=== PATIENT | male | born 1940 | race Caucasian/White ===

== ENCOUNTER → 2016-12-24 | Outpatient (CLI) | payer OTHER, MEDICARE ==
--- NOTE | 2016-12-24 10:44 | FL ---
EXAMINATION TYPE: FL UGI air w esophagus DATE OF EXAM: 12/24/2016 COMPARISON: 12/07/15 HISTORY: Acid reflux with to prior hiatal hernia surgeries. TECHNIQUE: A double contrast UGI study is performed. FINDINGS: Fisher Diving image of the abdomen shows no gross abnormality. The esophagus shows normal motility and emptying into the stomach. No evidence of hiatal hernia or s tricture noted. However, there is a diverticulum seen posteriorly, most compatible with a pulsion div erticulum. The stomach shows normal distensibility, peristalsis, but prominent mucosal folds. The previously méndez spected organoaxial type volvulus or incomplete rotation of the stomach has resolved in the interim. No evidence of any mass or ulcer disease. No evidence of stricture, obstruction, or leak. Gastroesophageal reflux to the level of the mid thoracic esophagus was appreciated in the gravity ind ependent portion the examination utilizing the Valsalva maneuver. Tertiary contractions were present during the gravity dependent portion of the examination. The duodenal bulb, sweep, and proximal small bowel loops are unremarkable. IMPRESSION: 1. Moderate gastroesophageal reflux. 2. Distal esophageal diverticulum, likely pulsion. 3. No evidence of stricture, obstruction, or leak. 4. Resolution of the previously suspected organoaxial type gastric volvulus. 5. Presbyesophagus.
== END | disposition home or self-care (01) ==
LOC: RADFLMAIN 07:18
PROVIDERS: ATTEND Surgery
DX: K21.9 Gastro-esophageal reflux disease without esophagitis (principal); K22.5 Diverticulum of esophagus, acquired; K22.8 Other specified diseases of esophagus
CPT/HCPCS: 74246

== ENCOUNTER 2017-01-06 07:54 | Day surgery (SDC) | payer OTHER, MEDICARE ==
[2017-01-01 13:29] VITALS: BMI 28.0
[~2017-01-06 07:54] MED LIST: LACTATED RINGERS 1,000 ML IV SCH; LIDOCAINE 1% 20 ML VIAL (10MG/ML) FOR IV START INTRADERMA PRN
[2017-01-06 08:08] VITALS: TEMP 98.1
[2017-01-06] MEDS ORDERED: LACTATED RINGERS 1,000 ML IV ONE (08:09)
[2017-01-06 08:22] LABS: Glucose,Whole Blood 124 mg/dL (75-99)
[2017-01-06] MEDS ORDERED: PROPOFOL 10 MG/ML 20 ML VIAL IV ONE (09:14)
[2017-01-06] MEDS ORDERED: GLYCOPYRROLATE 0.2 MG/ML 2 ML VIAL ONE (09:14)
[2017-01-06] MEDS ORDERED: LIDOCAINE 1% INJ 10MG/ML (20 ML MDV) ONE (09:14)
--- NOTE | 2017-01-06 09:25 | P.GSHP ---
History of Present Illness H&P Date: 01/06/17 Chief Complaint: GERD This is a 76-year-old male with issues of mild dysphagia.. Patient has had a previous hiatal hernia repair. His recent esophagram shows no evidence of a hiatal hernia. There is evidence of a distal office diverticulum. Patient presents today for EGD. Past Medical History Past Medical History: Coronary Artery Disease (CAD), Chest Pain / Angina, COPD, Diabetes Mellitus, GERD/Reflux, Hyperlipidemia, Hypertension, Osteoarthritis (OA ), Pneumonia, Prostate Disorder Additional Past Medical History / Comment(s): STATES IRREGULAR HEART BEAT, ENLARGED PROSTATE, URGENCY W URINATION. hx hiatal hernia, borderline diabetic History of Any Multi-Drug Resistant Organisms: None Reported Past Surgical History: Heart Catheterization, Heart Catheterization With Stent, Tonsillectomy Additional Past Surgical History / Comment(s): HEART CATH X4- ONE STENT., COLONOSCOPY, BILAT CATARACT SX, EGD Past Anesthesia/Blood Transfusion Reactions: No Reported Reaction Date of Last Stent Placement:: 2008 Smoking Status: Former smoker - Past Family History Mother Family Medical History: No Reported History Father Family Medical History: CVA/TIA Brother(s) Family Medical History: Cancer Additional Family Medical History / Comment(s): . Medications and Allergies Home Medications Medication Instructions Recorded Confirmed Type Albuterol Nebulized [Ventolin 2.5 mg INHALATION Q6H PRN 02/12/15 01/06/17 History Nebulized] Aspirin EC [Ecotrin Low Dose] 81 mg PO DAILY 02/12/15 01/01/17 History Carvedilol [Coreg] 6.25 mg PO QAM 02/12/15 01/01/17 History Finasteride [Proscar] 5 mg PO DAILY 02/12/15 01/01/17 History Fluticasone/Salmeterol [Advair 1 inhalation PO QAM 02/12/15 01/01/17 History 500-50 Diskus] Furosemide [Lasix] 40 mg PO DAILY 02/12/15 01/01/17 History Loratadine [Claritin] 10 mg PO DAILY 02/12/15 01/01/17 History Rosuvastatin Calcium [Crestor] 20 mg PO DAILY 02/12/15 01/01/17 History Tiotropium [place] [Spiriva] 1 puff IH QAM 02/12/15 01/01/17 History Glucosam/Chond/Hyalu/Cf Borate 1 each PO DAILY 01/01/17 01/01/17 History [Move Free Joint Health Tablet] Losartan [Cozaar] 12.5 mg PO DAILY 01/01/17 01/01/17 History Multivitamins, Thera [Multivitamin 1 tab PO DAILY 01/01/17 01/01/17 History (formulary)] Ranitidine HCl 300 mg PO QAM 01/01/17 01/01/17 History metFORMIN HCL [Glucophage] 500 mg PO DAILY 01/01/17 01/01/17 History Allergies Allergy/AdvReac Type Severity Reaction Status Date / Time No Known Allergies Allergy Verified 01/01/17 13:12 Surgical - Exam Vital Signs Temp Pulse Resp BP Pulse Ox 98.1 F 70 18 114/74 100 01/06/17 08:07 01/06/17 08:07 01/06/17 08:07 01/06/17 08:07 01/06/17 08:07 - General well developed, no distress - Eyes PERRL - ENT normal pinna - Neck no masses - Respiratory normal expansion - Cardiovascular Rhythm: regular - Abdomen Abdomen: soft, non tender Results - Labs Abnormal Lab Results - Last 24 Hours (Table) 01/06/17 Range/Units 08:20 POC Glucose (mg/dL) 124 H (75-99) mg/dL Assessment and Plan Plan: GERD, dysphagia. We'll.
--- NOTE | 2017-01-06 09:33 | P.OP ---
Date of Procedure: 01/06/17 Preoperative Diagnosis: GERD Postoperative Diagnosis: Mild antral gastritis Retained gastric food Small recurrent hiatal hernia Procedure(s) Performed: EGD Implants: Anesthesia: MAC Surgeon: Guru Aguero Pathology: other (Antrum) Condition: stable Disposition: PACU Indications for Procedure: Operative Findings: Description of Procedure: The patient's placed on the endoscopy table in the lateral position. He received IV sedation. The gastroscope placed oropharynx and passed into the esophagus into the stomach. Scope was then placed through the pylorus. The first and second portion of the duodenum appeared normal. Scope was then brought back the antrum this. Mildly inflamed. A biopsies was performed. Scope was then retroflexed and the remainder of the stomach appeared normal. The patient had some retained gastric food. There was a small recurrent hiatal hernia. The GE junction was at 40 cm. The distal esophagus appeared normal. The small diverticulum was seen in the distal esophagus. The proximal esophagus appeared normal. Scope Patient.
[2017-01-06 09:45] LABS: Glucose,Whole Blood 111 mg/dL (75-99)
[2017-01-06 10:00] VITALS: BP 100/72; PULSE 70; RESP 18
== END 2017-01-06 10:27 | disposition home or self-care (01) ==
LOC: ORWHC2ENDO 07:54
PROVIDERS: ATTEND Surgery
DX: K21.9 Gastro-esophageal reflux disease without esophagitis (principal); K29.50 Unspecified chronic gastritis without bleeding; K22.5 Diverticulum of esophagus, acquired; K44.9 Diaphragmatic hernia without obstruction or gangrene; J44.9 Chronic obstructive pulmonary disease, unspecified; I25.119 Atherosclerotic heart disease of native coronary artery with unspecified angina pectoris; E11.9 Type 2 diabetes mellitus without complications; E78.5 Hyperlipidemia, unspecified; I10 Essential (primary) hypertension; M19.90 Unspecified osteoarthritis, unspecified site; N40.1 Benign prostatic hyperplasia with lower urinary tract symptoms; R39.15 Urgency of urination; Z79.82 Long term (current) use of aspirin; Z79.51 Long term (current) use of inhaled steroids; Z79.84 Long term (current) use of oral hypoglycemic drugs; Z79.899 Other long term (current) drug therapy; Z87.891 Personal history of nicotine dependence; Z95.5 Presence of coronary angioplasty implant and graft; Z82.3 Family history of stroke; Z80.9 Family history of malignant neoplasm, unspecified
CPT/HCPCS: 43239; 88305; 88342; J2001; J2704

== ENCOUNTER → 2018-04-01 | Outpatient (CLI) | payer MEDICARE, OTHER ==
--- NOTE | 2018-04-02 07:52 | CT ---
EXAMINATION TYPE: CT soft tissue neck w con DATE OF EXAM: 04/01/2018 HISTORY: Localized swelling on anterior neck. BB's placed on areas of interest. COMPARISON: NONE CT DLP: 638 mGycm. Automated Exposure Control for Dose Reduction was Utilized. TECHNIQUE: CT scan of the neck is performed with IV Contrast, patient injected with 100ml mL of Isov ue M300, axial images are obtained, coronal and sagittal reformatted images are reviewed. FINDINGS: BBs are noted axial image 36 at level of hyoid bone. There is mild diffuse fat stranding at this level. On the left side there is round 9 x 8 mm hyperdense lesion axial image 36 could reflect borderline enlarged lymph node. No well-formed fluid collection is seen. There is smaller more ill-de fined round mass probable lymph node in the midline axial image 34. The submandibular glands are seen just superior and lateral to this level, right slightly larger than left but no significant surround ing inflammatory change. There are slightly prominent but symmetric appearing subcentimeter bilateral submandibular lymph nodes seen superior to this. Lack of dentition is noted. Mandible is intact with out ossific destruction. Airway: No gross abnormality seen. Parotid/submandibular glands: No gross abnormality seen. Carotid/Vascular Structures: Ascending aorta measures up to 3.6 cm in diameter on lowest-most axial i mages. Left pulmonary artery measures up to 2.9 cm in diameter axial image 86. Underlying pulmonary a rtery hypertension needs to BE considered. There is mild to moderate mixed plaque in the aortic arch. There is moderate to severe right and mild to moderate left mixed plaque at bilateral carotid bulbs extending into proximal internal carotid arteries. No significant stenosis is clearly seen bilaterall y. Stenosis approaching near 50% is suspected on the right Osseous Structures: There is moderate to severe multilevel disc space narrowing with mild multilevel spurring, there is multilevel vacuum disc phenomenon. Endplate sclerosis is seen. Findings are fairly diffuse from C3 to C4 through C6-C7 levels. Posterior spur disc complexes are effacing anterior thec al sac C3-C4 and C6-C7 levels on sagittal images. There is multilevel uncovertebral facet degenerativ e changes seen on axial images. Other: No definitive greater than 1 cm neck adenopathy is identified bilaterally IMPRESSION: Nonspecific inflammatory change in the lower mandible with reactive adenopathy centered a nteriorly at level of hyoid bone. Correlate for soft tissue infection or cellulitis. No well-formed f luid collection or abscess is noted.
== END | disposition home or self-care (01) ==
LOC: RADCTMAIN 16:11
PROVIDERS: ATTEND Family Medicine
DX: R59.0 Localized enlarged lymph nodes (principal); L08.89 Other specified local infections of the skin and subcutaneous tissue
CPT/HCPCS: 82565; 84520; 70491; 36415; Q9967

== ENCOUNTER → 2018-05-19 | Outpatient (CLI) | payer MEDICARE, OTHER ==
[2018-05-19 16:20] LABS: Blood Urea Nitrogen 19 mg/dL (9-20)
--- NOTE | 2018-05-19 22:23 | CT ---
EXAMINATION TYPE: CT chest w con DATE OF EXAM: 05/19/2018 COMPARISON: None HISTORY: 77-year-old male emphysema, weight loss TECHNIQUE: Contiguous axial scanning of the chest after the administration of 100 mL of Isovue 300. Coronal/sagittal reconstructions performed. CT DLP: 360.30mGycm. Automatic exposure control utilized for a dose reduction. FINDINGS: Heart normal size without pericardial effusion. Coronary vessel calcifications are present. Aorta normal caliber with mild atherosclerotic arch calcifications and conventional arch vessel branc irma anatomy. Ectatic upper descending thoracic aorta at 3.0 cm. Large caliber to the main right and left pulmonary arteries measuring 2.8 and 3.3 cm, respectively, s uggesting underlying pulmonary arterial hypertension. No thoracic lymphadenopathy by CT size criteria. Mild to moderate centrilobular emphysema. Strandy atelectasis or scarring at the left base. 6 mm nonspecific pulmonary nodule right lower lung along the major fissure. Postsurgical changes at the GE junction with a small to moderate-sized hiatal hernia. Fat-containing right-sided Bochdalek hernia demonstrated. Subcentimeter (7 mm) hypodensity peripheral and inferior right liver lobe too small for accurate CT c haracterization, probable cyst. There is a couple rounded focal soft tissue areas of nodularity in the pancreas measuring 1.3 cm at t he junction of the pancreatic tail and body and measuring 1.2 cm at the tip of the pancreatic tail. T hese could represent some prominent islands of pancreatic tissue on a background of mild diffuse atro phy. Possible partially visualized infrarenal abdominal aortic aneurysm. Bones: Degenerative disc disease mid to lower thoracic spine. IMPRESSION: 1. Findings which warrant follow-up: 6 mm right mid to lower lung pulmonary nodule, 7 mm right liver lobe hypodense lesion (possible cyst), and a couple nodular areas in the pancreas measuring up to 1.3 cm (possible prominent islands of pancreatic tissue on a background of pancreatic atrophy). Three-mo nth follow-up contrast-enhanced CT chest and abdomen recommended to reassess. 2. COPD and pulmonary arterial hypertension. CAD. 3. Postsurgical changes at the GE junction with a small to moderate-sized hiatal hernia (query recurr ent hernia). 4. Possible partially visualized infrarenal abdominal aortic aneurysm.
== END | disposition home or self-care (01) ==
LOC: RADCTMAIN 15:30
PROVIDERS: ATTEND Family Medicine
DX: J44.9 Chronic obstructive pulmonary disease, unspecified (principal); I25.10 Atherosclerotic heart disease of native coronary artery without angina pectoris; I27.21 Secondary pulmonary arterial hypertension; K44.9 Diaphragmatic hernia without obstruction or gangrene; R91.1 Solitary pulmonary nodule; R63.4 Abnormal weight loss
CPT/HCPCS: 82565; 84520; 71260; 36415; Q9967

== ENCOUNTER → 2018-09-01 | Outpatient (CLI) | payer MEDICARE, OTHER ==
[2018-09-01 09:44] LABS: Blood Urea Nitrogen 17 mg/dL (9-20)
--- NOTE | 2018-09-01 11:48 | CT ---
EXAMINATION TYPE: CT chest abdomen w con DATE OF EXAM: 09/01/2018 COMPARISON: CT chest May 19, 2018. HISTORY: Pancreatic mass, lung nodule CT DLP: 897.2 mGycm. Automated Exposure Control for Dose Reduction was Utilized. CONTRAST: CT scan of the thorax and abdomen are performed with oral and with IV Contrast, patient injected with 100 mL of Isovue 370. FINDINGS: LUNGS: There is background mild to borderline moderate underlying emphysematous change most prominent in the upper lobes. There is persistent Bochdalek type hernia in the right lung base posteriorly con taining intra-abdominal fat. There is adjacent right lung linear scarring and/or atelectasis. There i s stable 6 x 5 mm partially calcified nodule along the right lung fissure axial image 83 presumed juan antonio ign. No new nodules or masses are present. No pleural effusion or pneumothorax is identified. MEDIASTINUM: There are no greater than 1 cm hilar or mediastinal lymph nodes. No cardiomegaly or p ericardial effusion is seen. Coronary artery calcification is again seen which is noted marker for un derlying coronary artery disease OTHER: Small degree of bilateral gynecomastia is redemonstrated. LIVER/GB: There is stable subcentimeter low dense lesion right hepatic lobe axial image 163 favor juan antonio ign. PANCREAS: There is moderate generalized atrophy of the pancreas with stable 1.1 cm nodular prominence mid to distal body axial image 146 which is presumed more focal nonatrophic pancreatic tissue as the re is no distal ductal dilatation, similar finding is seen in the pancreatic tail though slightly les s prominent axial image 151 unchanged from prior. SPLEEN: No significant abnormality is seen. ADRENALS: No significant abnormality is seen. KIDNEYS: No excretion is seen bilaterally present product of time of imaging. No hydronephrosis is no comfort. BOWEL: Surgical changes and gastroesophageal junction are redemonstrated. There is no suspicious smal l or large bowel dilatation. Diverticula in the left colon are noted. LYMPH NODES: No greater than 1cm abdominal lymph nodes are appreciated. OSSEOUS STRUCTURES: Facet arthropathy lower lumbar spine is present. OTHER: There is moderate apparatus chronic change in the aorta. There is ectasia measuring up to 2.7 cm transversely axial image 194 with moderate left-sided noncalcified intramural hematoma noted. No g reater than 3 cm aneurysmal changes seen. IMPRESSION: 1. Stable presumed benign right mid lung partially calcified nodule. No new nodules or masses are ev ident. 2. Stable areas of nodular prominence in the pancreas favored nonatrophic tissue. 3. Ectasia/aneurysm of distal abdominal aorta up to 2.[address] follow-up in 6 months time to ensure suspected benign findings.
== END | disposition home or self-care (01) ==
LOC: RADCTMAIN 08:42
PROVIDERS: ATTEND Family Medicine
DX: K86.89 Other specified diseases of pancreas (principal); R91.1 Solitary pulmonary nodule; I71.4 Abdominal aortic aneurysm, without rupture
CPT/HCPCS: 82565; 84520; 71260; 74160; 36415; Q9967

== ENCOUNTER → 2020-12-05 | Outpatient (CLI) | payer MEDICARE, OTHER ==
[~2020-12-05] MED LIST changes: -LACTATED RINGERS 1,000 ML IV SCH; -LIDOCAINE 1% 20 ML VIAL (10MG/ML) FOR IV START INTRADERMA PRN; +REGADENOSON 0.4 MG/5 ML SYRINGE IV PRN
--- NOTE | 2020-12-05 11:32 | NM ---
EXAMINATION TYPE: NM stress lexiscan cardiolite DATE OF EXAM: 12/05/2020 COMPARISON: NONE HISTORY: Chest pain TECHNIQUE: After the intravenous administration of 9.8 mCi Tc 99m Sestamibi - Cardiolite resting SPE CT images acquired 45 minutes post injection. The patient received 0.4mg Lexiscan, 25.5 mCi Tc 99m Sestamibi - Stress images obtained [address] injection FINDINGS: Review of stress and rest SPECT images demonstrates reduced uptake involving the inferior and inferoa pical portion of the myocardium with corresponding wall motion defect. No definite stress-induced rev ersible ischemia identified.. Gated analysis shows an estimated left ventricular ejection fraction o f 57 %. IMPRESSION: Area of suspected remote ischemia involving the inferior portion of the myocardial wall no definite s izable stress-induced reversible anemia although a tiny area of bursal ischemia cannot base correlate clinically.
--- NOTE | 2020-12-05 13:05 | EST ---
EXERCISE STRESS AGE: 80 SEX: M HT: 5'8" WT: 350 lbs. PROTOCOL: Lexiscan STAGE: NA DURATION OF EXERCISE: NA HEART RATE REST: 59 BLOOD PRESSURE REST: 131/73 MAXIMUM HEART RATE ACHIEVED: 73 MAXIMUM BLOOD PRESSURE: 131/73 85% MPHR: 120 100% MPHR: 141 METS: NA INDICATIONS: Heart disease. CLINICAL INFORMATION: Baseline rhythm is sinus mechanism rate of 59, occasional PVCs and rare couplets. Left axis deviation, poor R wave progression. Baseline blood pressure 131/73 mmHg. Patient received injection of Lexiscan. Electrocardiograph monitoring revealed frequent single PVCs. There was no evidence of diagnostic ischemic ST deviation. Cardiolite was injected per protocol. CONCLUSION: 1. Nondiagnostic electrocardiograph stress testing. 2. Frequent ventricular ectopic activity. 3. Nuclear images will be reported separately. MMODL / IJN: [id number] /
== END | disposition home or self-care (01) ==
LOC: RADNMMAIN 07:44
PROVIDERS: ATTEND Family Medicine
DX: I25.10 Atherosclerotic heart disease of native coronary artery without angina pectoris (principal); I10 Essential (primary) hypertension
CPT/HCPCS: 93017; 78452; A9500; J2785

== ENCOUNTER → 2022-08-11 | Outpatient (CLI) | payer MEDICARE, OTHER ==
--- NOTE | 2022-08-12 22:36 | MR ---
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 Bowels + urine go at the same time. COMPARISON: None TECHNIQUE: Multi planar, multi sequence imaging was performed through the brain including: T1, T2, In version recovery, susceptibility weighted imaging and gradient echo imaging and Diffusion weighted im aging. The patient was then given intravenous contrast and multi planar, T1 fat-saturation images wer e obtained. IV Contrast: 7.5 cc Gadavist FINDINGS: The ventricles are partially dilated to mild cerebral atrophy changes. Left lateral ventricle slightl y asymmetrically increased compared to right. The third ventricle and fourth ventricles are within no rmal limits. No transependymal flow identified. The portillo-white junctions, ventricular system, basal c isterns appear unremarkable. Diffusion-weighted imaging shows no evidence of restricted diffusion to suggest acute/subacute infarct. Intracranial arterial flow voids are maintained. Midline structures s how no abnormality. Scattered foci of high T2 signal intensity are seen within the periventricular wh ite matter. The susceptibility weighted images do not reveal any evidence for micro-hemorrhage. After administration of gadolinium, no abnormal enhancement is seen. The bone marrow signal is within normal limits. Paranasal sinuses and mastoid air cells: No significant paranasal sinus disease. Visualized orbits: Bilateral aphakia IMPRESSION: 1. No evidence for hydrocephalus. Dilation of ventricles in proportion to cerebral atrophy. No transe pendymal flow identified. 2. No evidence of intracranial mass, acute/subacute infarct, or abnormal enhancement. 3. Nonspecific white matter changes, likely related to small vessel ischemic disease
== END | disposition home or self-care (01) ==
LOC: RADMRIMAIN 17:29
PROVIDERS: ATTEND Family Medicine
DX: G31.9 Degenerative disease of nervous system, unspecified (principal); G91.2 (Idiopathic) normal pressure hydrocephalus; R90.82 White matter disease, unspecified
CPT/HCPCS: 70553; A9585

== ENCOUNTER 2022-10-23 06:43 | Day surgery (SDC) | payer MEDICARE, OTHER ==
[2022-10-23] MEDS ORDERED: LACTATED RINGERS 1,000 ML IV SCH (07:14)
[2022-10-23 07:50] LABS: Glucose,Whole Blood 114 mg/dL (70-110)
[2022-10-23 07:52] VITALS: TEMP 97
[2022-10-23] MEDS ORDERED: PROPOFOL 10 MG/ML 20 ML VIAL IV ONE (08:01)
--- NOTE | 2022-10-23 08:04 | P.GSHP ---
History of Present Illness H&P Date: 10/23/22 Chief Complaint: Weight loss, screening colonoscopy This is a 81-year-old male who's had some weight loss or last 6 months. Patient presents today for screening colonoscopy. Past Medical History Past Medical History: Coronary Artery Disease (CAD), Chest Pain / Angina, COPD, Diabetes Mellitus, GERD/Reflux, Hyperlipidemia, Hypertension, Osteoarthritis (OA), Pneumonia, Prostate Disorder, Thyroid Disorder Additional Past Medical History / Comment(s): STATES IRREGULAR HEART BEAT, ENLARGED PROSTATE, URGENCY W URINATION. hx hiatal hernia, borderline diabetic not taking metformin at this time per pt choice, he states his Dr Escobar is aware, no replacement med prescribed. wt loss over 1 1/2 yrs, 60lbs History of Any Multi-Drug Resistant Organisms: None Reported Past Surgical History: Heart Catheterization, Heart Catheterization With Stent, Tonsillectomy Additional Past Surgical History / Comment(s): HEART CATH X4- ONE STENT., CO LONOSCOPY, BILAT CATARACT SX, EGD Past Anesthesia/Blood Transfusion Reactions: No Reported Reaction Date of Last Stent Placement:: 2008 Past Psychological History: No Psychological Hx Reported Smoking Status: Former smoker Past Alcohol Use History: Occasional Additional Past Alcohol Use History / Comment(s): SMOKED SINCE HE WAS 15 YRS OLD AND QUIT 1991 AT 3PPD Past Drug Use History: Marijuana Additional Drug Use History / Comment(s): cbd oil . pt aware not to use 24 hrs before procedure - Past Family History Mother Family Medical History: No Reported History Father Family Medical History: CVA/TIA Brother(s) Family Medical History: Cancer Additional Family Medical History / Comment(s): leukemia. another brother filled with cancer Medications and Allergies Home Medications Medication Instructions Recorded Confirmed Type Albuterol Nebulized [Ventolin 2.5 mg INHALATION Q6H PRN 02/12/15 10/21/22 History Nebulized] Aspirin EC [Ecotrin Low Dose] 81 mg PO DAILY 02/12/15 10/21/22 History Finasteride [Proscar] 5 mg PO DAILY 02/12/15 10/21/22 History Furosemide [Lasix] 40 mg PO DAILY 02/12/15 10/21/22 History Loratadine [Claritin] 10 mg PO DAILY 02/12/15 10/21/22 History Tiotropium [place] [Spiriva] 1 puff IH QAM 02/12/15 10/21/22 History Losartan [Cozaar] 12.5 mg PO DAILY 01/01/17 10/21/22 History Multivitamins, Thera [Multivitamin 1 tab PO DAILY 01/01/17 10/21/22 History (formulary)] Ergocalciferol [Vitamin D2 (1250 1,250 mcg PO VELASQUEZ 10/21/22 10/21/22 History Mcg = 33404 Iu)] Famotidine 40 mg PO DAILY 10/21/22 10/21/22 History Fluticasone Propion/Salmeterol 1 inhalation PO DAILY PRN 10/21/22 10/21/22 History [Fluticasone-Salmeterol 250-50] Levothyroxine Sodium [Synthroid] 50 mcg PO DAILY 10/21/22 10/21/22 History Montelukast [Singulair] 10 mg PO DAILY 10/21/22 10/21/22 History Sacubitril/Valsartan [Entresto 24 1 each PO DAILY 10/21/22 10/21/22 History mg-26 mg Tablet] Tamsulosin [Flomax] 0.4 mg PO BID 10/21/22 10/21/22 History Unk Supp Help Soothe 1 tab PO DAILY 10/21/22 10/21/22 History Allergies Allergy/AdvReac Type Severity Reaction Status Date / Time No Known Allergies Allergy Verified 10/21/22 12:19 Surgical - Exam Vital Signs Temp Pulse Resp BP Pulse Ox 97 F L 66 20 104/58 97 10/23/22 07:50 10/23/22 07:50 10/23/22 07:50 10/23/22 07:50 10/23/22 07:50 - General well developed, well nourished, no distress - Eyes PERRL - ENT normal pinna - Neck no masses - Respiratory normal expansion - Cardiovascular Rhythm: regular - Abdomen Abdomen: soft, non tender Results - Labs Abnormal Lab Results - Last 24 Hours (Table) 10/23/22 Range/Units 07:45 POC Glucose (mg/dL) 114 H (70-110) mg/dL Assessment and Plan Assessment: Weight loss We'll perform screening colonoscopy
--- NOTE | 2022-10-23 08:17 | P.OP ---
Date of Procedure: 10/23/22 Preoperative Diagnosis: Screening colonoscopy Weight loss Postoperative Diagnosis: Diverticulosis Procedure(s) Performed: Colonoscopy Anesthesia: MAC Surgeon: Guru Aguero Pathology: none sent Condition: stable Disposition: PACU Description of Procedure: The patient's placed on the endoscopy table in the lateral position. He received IV sedation. Digital rectal exam was performed. This revealed no ebonized. The flexible colonoscope was then placed patient anus and passed throughout the entire colon. The ileocecal valve was visualized. The cecum, ascending and transverse colon appeared normal. The descending and sigmoid colon had significant diverticular disease. Scope was then brought back the rectum and this appeared normal. Scope withdrawn for patient.
[2022-10-23 08:36] VITALS: RESP 16
[2022-10-23 08:46] VITALS: BP 104/67; PULSE 55
== END 2022-10-23 08:58 | disposition home or self-care (01) ==
LOC: ORWHC2ENDO 06:43
PROVIDERS: ATTEND Surgery
DX: K57.30 Diverticulosis of large intestine without perforation or abscess without bleeding (principal); I25.10 Atherosclerotic heart disease of native coronary artery without angina pectoris; J44.9 Chronic obstructive pulmonary disease, unspecified; K21.9 Gastro-esophageal reflux disease without esophagitis; E78.5 Hyperlipidemia, unspecified; I10 Essential (primary) hypertension; M19.90 Unspecified osteoarthritis, unspecified site; E03.9 Hypothyroidism, unspecified; N40.0 Benign prostatic hyperplasia without lower urinary tract symptoms; F12.90 Cannabis use, unspecified, uncomplicated; Z98.890 Other specified postprocedural states; Z95.5 Presence of coronary angioplasty implant and graft; Z90.89 Acquired absence of other organs; Z87.891 Personal history of nicotine dependence; Z86.59 Personal history of other mental and behavioral disorders; Z82.3 Family history of stroke; Z80.6 Family history of leukemia; Z79.51 Long term (current) use of inhaled steroids; Z79.82 Long term (current) use of aspirin; Z79.899 Other long term (current) drug therapy
CPT/HCPCS: 45378; J2704

== ENCOUNTER → 2022-11-06 | Outpatient (CLI) | payer MEDICARE, OTHER ==
[2022-11-06 11:28] LABS: African American GFR (CKD) 78 (>60 ml/min/1.73 sqM); Blood Urea Nitrogen 21 mg/dL (9-20); Non-African American GFR(CKD) 67 (>60 ml/min/1.73 sqM)
--- NOTE | 2022-11-06 12:45 | CT ---
EXAMINATION TYPE: CT chest w con CT DLP: 285.6 mGycm, Automated exposure control for dose reduction was used. DATE OF EXAM: 11/06/2022 12:07 PM COMPARISON: CT chest abdomen 09/01/2018, CT chest 05/19/2018 CLINICAL INDICATION:Male, 81 years old with history of R05 R63.4; PHH, cough, weight loss, COPD TECHNIQUE: Multiple axial images were obtained through the chest following the administration of 100 cc of Isovue 300. . Coronal and sagittal reformats reviewed. FINDINGS: LUNGS/ PLEURA: Mild emphysematous changes. No pleural effusion, pneumothorax, or focal consolidation. Persistent potential lack type hernia in the right lung base posterior containing intra-abdominal f at. Stable 6 x 5 mm partially opacified nodule along the right lung major fissure (series 4, image 36 ). This is benign. No new or enlarging pulmonary nodules. AIRWAY: Patent and unremarkable.. HEART: Size within normal limits. No pericardial effusion. Mild coronary artery calcifications. MEDIASTINUM: No evidence of adenopathy. VASCULATURE: No aortic aneurysm. As described calcification of the aorta. MUSCULOSKELETAL: No acute osseous abnormalities. No aggressive osseous lesion. Bilateral shoulder art hropathy. Mild multilevel degenerative disc disease of the thoracic spine. SOFT TISSUES/LYMPH NODES: Minimal bilateral gynecomastia. LOWER NECK: No significant findings. UPPER ABDOMEN: Right hepatic lobe 1 cm cyst. Postsurgical changes of the GE junction. Fatty infiltrat ion of the pancreas. IMPRESSION: 1. No acute thoracic process. 2. Stable benign right mid lung partially calcified nodule dating back to 2018. No new or enlarging p ulmonary nodules. 3. Mild COPD changes.
== END | disposition home or self-care (01) ==
LOC: RADCTMAIN 10:08
PROVIDERS: ATTEND Family Medicine
DX: J44.9 Chronic obstructive pulmonary disease, unspecified (principal); R63.4 Abnormal weight loss; R91.1 Solitary pulmonary nodule
CPT/HCPCS: 82565; 84520; 71260; 36415; Q9967

== ENCOUNTER 2022-11-30 10:06 | Emergency (ER) | payer MEDICARE, OTHER ==
[2022-11-30 10:19] VITALS: RESP 18; TEMP 98
[2022-11-30] MEDS ORDERED: FLUORESCEIN STRIPS 1 MG STRIP RIGHT EYE ONE (10:21)
[2022-11-30] MEDS ORDERED: PROPARACAINE 0.5% OPHTH DROPS 15 ML BTL RIGHT EYE STA (10:21)
[2022-11-30] MEDS ORDERED: DIPH,PERTUS(ACELL)TETVAC-LF 0.5 ML VIAL IM ONE (10:39)
[2022-11-30] MEDS ORDERED: TOBRAMYCIN 0.3% OPHTH DROPS 5 ML BTL RIGHT EYE STA (10:39)
--- NOTE | 2022-11-30 10:46 | ED ---
Eye Problem HPI - General Chief complaint: Eye Problems Stated complaint: FB right eye Time Seen by Provider: 11/30/22 10:21 Source: patient, RN notes reviewed Mode of arrival: ambulatory Limitations: no limitations - History of Present Illness Initial comments: 82-year-old male presents emergency department to complaint of right eye irritation. Patient states that he believes he has some sawdust in his right eye states that his been sore feels like symptoms as I have presents. He is unsure when his last tetanus was. No visual disturbance. He states his appointment tomorrow for his security police for new glasses. Patient denies any other associated symptoms. - Related Data Home Medications Medication Instructions Recorded Confirmed Albuterol Nebulized [Ventolin 2.5 mg INHALATION Q6H PRN 02/12/15 10/21/22 Nebulized] Aspirin EC [Ecotrin Low Dose] 81 mg PO DAILY 02/12/15 10/21/22 Finasteride [Proscar] 5 mg PO DAILY 02/12/15 10/21/22 Furosemide [Lasix] 40 mg PO DAILY 02/12/15 10/21/22 Loratadine [Claritin] 10 mg PO DAILY 02/12/15 10/21/22 Tiotropium Wagoner [Spiriva] 1 puff IH QAM 02/12/15 10/21/22 Losartan [Cozaar] 12.5 mg PO DAILY 01/01/17 10/21/22 Multivitamins, Thera [Multivitamin 1 tab PO DAILY 01/01/17 10/21/22 (formulary)] Ergocalciferol [Vitamin D2 (1250 1,250 mcg PO VELASQUEZ 10/21/22 10/21/22 Mcg = 81398 Iu)] Famotidine 40 mg PO DAILY 10/21/22 10/21/22 Fluticasone Propion/Salmeterol 1 inhalation PO DAILY PRN 10/21/22 10/21/22 [Fluticasone-Salmeterol 250-50] Levothyroxine Sodium [Synthroid] 50 mcg PO DAILY 10/21/22 10/21/22 Montelukast [Singulair] 10 mg PO DAILY 10/21/22 10/21/22 Sacubitril/Valsartan [Entresto 24 1 each PO DAILY 06/20/23 06/20/23 mg-26 mg Tablet] Tamsulosin [Flomax] 0.4 mg PO BID 10/21/22 10/21/22 Unk Supp Help Soothe 1 tab PO DAILY 10/21/22 10/21/22 Allergies Allergy/AdvReac Type Severity Reaction Status Date / Time No Known Allergies Allergy Verified 11/30/22 10:19 Review of Systems ROS Statement: Those systems with pertinent positive or pertinent negative responses have been documented in the HPI. ROS Other: All systems not noted in ROS Statement are negative. Past Medical History Past Medical History: Coronary Artery Disease (CAD), Chest Pain / Angina, COPD, Diabetes Mellitus, GERD/Reflux, Hyperlipidemia, Hypertension, Osteoarthritis (OA), Pneumonia, Prostate Disorder Additional Past Medical History / Comment(s): STATES IRREGULAR HEART BEAT, ENLARGED PROSTATE, URGENCY W URINATION. hx hiatal hernia, borderline diabetic History of Any Multi-Drug Resistant Organisms: None Reported Past Surgical History: Heart Catheterization, Heart Catheterization With Stent, Tonsillectomy Additional Past Surgical History / Comment(s): HEART CATH X4- ONE STENT., COLONOSCOPY, BILAT CATARACT SX, EGD Past Anesthesia/Blood Transfusion Reactions: No Reported Reaction Date of Last Stent Placement:: 2008 Past Psychological History: No Psychological Hx Reported Smoking Status: Former smoker Past Alcohol Use History: Occasional Past Drug Use History: None Reported - Past Family History Mother Family Medical History: No Reported History Father Family Medical History: CVA/TIA Brother(s) Family Medical History: Cancer Additional Family Medical History / Comment(s): leukemia. another brother filled with cancer General Exam Limitations: no limitations General appearance: alert, in no apparent distress Head exam: Present: atraumatic, normocephalic, normal inspection Eye exam: Present: PERRL, EOMI, conjunctival injection, other (Patient had relief of proparacaine drops right eye, fluorescein and Wood's lamp were used noted uptake no lower corneal region). Absent: normal appearance, scleral icterus, periorbital swelling Course Vital Signs 11/30/22 10:17 Temperature 98 F Pulse Rate 62 Respiratory 18 Rate Blood Pressure 106/62 O2 Sat by Pulse 97 Oximetry Medical Decision Making - Medical Decision Making Was pt. sent in by a medical professional or institution (, PA, SOFTWARE ARCHITECT, urgent care, hospital, or [facility]...) When possible be specific @ -No Did you speak to anyone other than the patient for history (EMS, parent, family, police, friend...)? What history was obtained from this source @ -No Did you review nursing and triage notes (agree or disagree)? Why? @ -I reviewed and agree with nursing and triage notes Were old charts reviewed (outside hosp., previous admission, EMS record, old EKG, old radiological studies, urgent care reports/EKG's, [facility] records)? Report findings @ -No old charts were reviewed Differential Diagnosis (chest pain, altered mental status, abdominal pain women, abdominal pain men, vaginal bleeding, weakness, fever, dyspnea, syncope, headache, dizziness, GI bleed, back pain, seizure, CVA, palpatations, mental health, musculoskeletal)? @ -Corneal abrasion, conjunctivitis, corneal foreign body EKG interpreted by me (3pts min.). @ -None X-rays interpreted by me (1pt min.). @ -None done CT interpreted by me (1pt min.). @ -None done U/S interpreted by me (1pt. min.). @ -None done What testing was considered but not performed or refused? (CT, X-rays, U/S, labs)? Why? @ -None What meds were considered but not given or refused? Why? @ -None Did you discuss the management of the patient with other professionals (professionals i.e. , PA, SOFTWARE ARCHITECT, lab, RT, psych nurse, social work program coordinator, white sugar supervisor, teacher, chief clinical officer, onsite case manager)? Give summary @ -No Was smoking cessation discussed for >3mins.? @ -No Was critical care preformed (if so, how long)? @ -No Were there social determinants of health that impacted care today? How? (Homelessness, low income, unemployed, alcoholism, drug addiction, transportation, low edu. Level, literacy, decrease access to med. care, alf, rehab)? @ -No Was there de-escalation of care discussed even if they declined (Discuss DNR or withdrawal of care, Hospice)? DNR status @ -No What co-morbidities impacted this encounter? (DM, HTN, Smoking, COPD, CAD, Cancer, CVA, ARF, Chemo, Hep., AIDS, mental health diagnosis, sleep apnea, morbid obesity)? @ -None Was patient admitted / discharged? Hospital course, mention meds given and route, prescriptions, significant lab abnormalities, going to OR and other pertinent info. @ -Discharge patient has corneal abrasion no foreign body noted patient's tetanus updated patient was discharged on Tobrex eyedrops. Patient has a follow-up appointment with security police tomorrow. Undiagnosed new problem with uncertain prognosis? @ -No Drug Therapy requiring intensive monitoring for toxicity (Heparin, Nitro, Insulin, Cardizem)? @ -No Were any procedures done? @ -No Diagnosis/symptom? @ -Corneal abrasion Acute, or Chronic, or Acute on Chronic? @ -Acute Uncomplicated (without systemic symptoms) or Complicated (systemic symptoms)? @ -Uncomplicated Side effects of treatment? @ -No Exacerbation, Progression, or Severe Exacerbation? @ -No Poses a threat to life or bodily function? How? (Chest pain, [place], [place], pneumonia, PE, COPD, DKA, ARF, appy, cholecystitis, CVA, Diverticulitis, Homicidal, Suicidal, threat to staff... and all critical care pts) @ -No Disposition Clinical Impression: Corneal abrasion Disposition: HOME SELF-CARE Condition: Stable Instructions (If sedation given, give patient instructions): Corneal Abrasion (ED) Additional Instructions: Use Tobrex eyedrops 1 drop every 4 or shortness days. Please return to the Emergency Department if symptoms worsen or any other concerns. Is patient prescribed a controlled substance at d/c from ED?: No Referrals: Salma Escobar DO [Primary Care Provider] - 1-2 days Time of Disposition: 10:46
[2022-11-30 11:01] VITALS: BP 109/71; PULSE 64
== END 2022-11-30 11:01 | disposition home or self-care (01) ==
LOC: EC 10:06
DX: S05.01XA Injury of conjunctiva and corneal abrasion without foreign body, right eye, initial encounter (principal); I25.10 Atherosclerotic heart disease of native coronary artery without angina pectoris; J44.9 Chronic obstructive pulmonary disease, unspecified; E11.9 Type 2 diabetes mellitus without complications; I10 Essential (primary) hypertension; M19.90 Unspecified osteoarthritis, unspecified site; Z87.891 Personal history of nicotine dependence; Z79.1 Long term (current) use of non-steroidal anti-inflammatories (NSAID); Z79.51 Long term (current) use of inhaled steroids; Z79.82 Long term (current) use of aspirin; Z79.899 Other long term (current) drug therapy; Z23 Encounter for immunization; X58.XXXA Exposure to other specified factors, initial encounter
CPT/HCPCS: 90471; 90715; 99283